=== PATIENT | male | born 2000 | race Caucasian/White ===

== ENCOUNTER 2019-02-07 13:53 | Emergency (ER) | payer OTHER ==
[~2019-02-07] VITALS: Ht 188 cm; Wt 79.4 kg
[2019-02-07] MEDS ORDERED: IBUP600 PO (15:57)
[2019-02-07] MEDS ORDERED: Norco 5-325 Ta1 EACH PO (15:57)
== END 2019-02-07 16:15 | disposition home or self-care (01) ==
LOC: ER 13:53
DX: S59.202A Unspecified physeal fracture of lower end of radius, left arm, initial encounter for closed fracture (principal); S00.81XA Abrasion of other part of head, initial encounter; V86.99XA Unspecified occupant of other special all-terrain or other off-road motor vehicle injured in nontraffic accident, initial encounter
CPT/HCPCS: 25605; 73100; 73110; 76000; 90471; 90714; 96361-59; 96374-59; 96375-59; 99152; 99283-25; J1200; J2405; J2704; J3010; J7030